=== PATIENT | male | born 1980 | race Caucasian/White ===

== ENCOUNTER 2025-03-13 10:37 | Emergency (ER) | payer SELFPAY ==
--- NOTE | ~2025-03-13 | XR_ITS ---
CLINICAL HISTORY: 2 weeks cough Two views of the chest. COMPARISON: None provided. FINDINGS: Hyperinflation. Normal heart size. Streaky consolidation along the left lung base. Blunting of the left costophrenic angle. No pneumothorax. No acute fracture. IMPRESSION: 1. Streaky left basilar consolidation suggestive of an infectious or inflammatory process. 2. Likely small left pleural effusion. This document has been electronically signed by: Fredo Ventura MD on 03/13/2025 14:03:57
[2025-03-13 10:59] VITALS: BP 157/82; PULSE 82; RESP 16; TEMP 36.2; O2SAT 99; BMI 21.8
--- NOTE | 2025-03-13 11:01 | ED.GENADULT ---
HPI - General Adult General Chief complaint: Back Pain/Injury Stated complaint: kidney pain swelling Time Seen by Provider: 03/13/25 12:00 Source: patient, RN notes reviewed and old records reviewed Mode of arrival: ambulatory Limitations: no limitations History of Present Illness ED Provider: SHANNON Alfonso HPI narrative: 44-year-old male without significant medical history presents to the ED due to lumbar back pain that has been radiating down bilateral legs. Patient states 2 weeks ago he had flu-like symptoms including productive cough, nasal congestion and malaise that has been improving after bed rest and home care, however cough has been persistent and he is unsure if this is due to his smoking history. Patient states he was in bed resting alot and began developing lumbar back pain that was radiating down B/L legs, but states this has also been improving. Patient reports a very physical lifestyle and has been doing kitchen renovations during this time period as well. Patient denies fall, trauma, injury causing this back pain. Additionally, patient states he saw a tick on his arm that was not attached that he was able to easily remove. During my time speaking with the patient, patient is bending forward touching his toes stating he is not having much pain today at all really. Denies saddle parasthesia, bowel/bladder incontinence, history of IV drug use. Denies chest pain, shortness of breath, fevers, chills MD complaint: lumbar back pain Related Data Previous Rx's ?Medication ?Instructions ?Recorded azithromycin 500 mg tablet See Rx Instructions PO .COMPLEX #9 03/13/25 tabs Allergies Allergy/AdvReac Type Severity Reaction Status Date / Time No Known Allergies Allergy Verified 03/13/25 11:02 Review of Systems Review of Systems: GENERAL APPEARANCE: ?AxOx4, generally well-appearing, no acute distress. HEENT: ?NC, AT. MMM. EOMI, clear conjunctiva, oropharynx clear. NECK: ?Supple without lymphadenopathy.? No stiffness or restricted ROM. HEART:? Normal rate and regular rhythm, normal S1/S1, no m/r/g LUNGS:? CTAB, moving air well. No crackles or wheezes are heard. ABDOMEN: ?Soft, nontender, nondistended with good bowel sounds heard. BACK: No CVAT, no obvious deformity. EXTREMITIES: ?Without cyanosis, clubbing or edema. NEUROLOGICAL: ?Grossly nonfocal. Alert and oriented, moving all 4 extremities. Observed to ambulate with normal gait. Skin: ?Warm and dry without any rash. Yes all other systems are reviewed and are negative [facility] Social History Social History Unable to assess alcohol history related to: Unknown Advance Directives: No Advance Directives Information Provided: No Physical Exam ED Vital Signs: Vital Signs - 24 hr 03/13/25 10:59 03/13/25 12:48 03/13/25 12:49 Temperature 97.2 F 98.6 F Pulse Rate 82 87 Respiratory Rate 16 19 Blood Pressure 157/82 H 148/96 H Pulse Oximetry 99 96 Oxygen Delivery Method Room Air Room Air BMI result Body Mass Index 21.8 GENERAL APPEARANCE: ?AxOx4, generally well-appearing, no acute distress. HEENT: ?NC, AT. MMM. EOMI, clear conjunctiva, oropharynx clear. NECK: ?Supple without lymphadenopathy.? No stiffness or restricted ROM. HEART:? Normal rate and regular rhythm, normal S1/S2, no m/r/g LUNGS:? CTAB, moving air well. No crackles or wheezes are heard. ABDOMEN: ?Soft, nontender, nondistended with good bowel sounds heard. BACK: No CVAT, no obvious deformity. No midline spinal tenderness, no lumbar paraspinal tenderness bilaterally, no SI joint tenderness bilaterally, ROM intact, patient able to comfortably bend forward and flexion, extend back and extension, B/L lateral bending intact without pain, no overlying skin changes or rashes noted. Patient is able to ambulate without pain, without ataxic gait EXTREMITIES: ?Without cyanosis, clubbing or edema. NEUROLOGICAL: ?Grossly nonfocal. Alert and oriented, moving all 4 extremities. Skin: ?Warm and dry without any rash. Course Course Course Narrative: This is a rapid medical exam performed by Joel Beard NP: Additional HPI, ROS, PE not included below will be deferred to primary provider. Patient is a 44y/o M presenting with complaint of back pain radiating to legs. Also has been having night sweats x 2 days. Plan: Labs, UA Medications Administered Discontinued Medications Generic Name Dose Route Start Last Admin Trade Name Freq PRN Reason Stop Dose Admin Acetaminophen 975 mg 03/13/25 12:59 03/13/25 13:04 Acetaminophen 325 Mg Tablet PO 03/13/25 13:00 975 mg ONCE ONE Administration Ketorolac Tromethamine 30 mg 03/13/25 12:59 03/13/25 13:04 Ketorolac Tromethamine 30 Mg/Ml Vial IM 03/13/25 13:00 30 mg ONCE ONE Administration Medical Decision Making Medical Decision Making [facility] Narrative: This is a very well appearing 44-year-old male who comes to the ED due to concerns of lumbar back pain that has been radiating down bilateral legs. Patient was ill with ?flu-like symptoms? approximately 2 weeks ago with productive cough, nasal congestion that has been progressively improving. Patient states during this time as he was in bed he developed some lumbar back pain, however this pain has been improving as well upon presentation. Physical exam without tenderness of midline spine or lumbar paraspinal muscles, no pain to palpation of bilateral SI joints, no skin rashes noted. ROM is fully intact patient able to perform extension, flexion, lateral bending without pain or restriction, patient able to ambulate freely without pain or ataxia. Patient denies saddle paresthesias, bowel/bladder incontinence. Patient reports he had a tick on him approximately 2 weeks ago that was not attached and he was able to easily remove. Patient without any red flag signs/symptoms including no history of IV drug use, no history of malignancy, no saddle paresthesias, bowel/bladder incontinence, no restriction of ROM, negative meningeal signs including negative Kernig's and Brudzinski's sign, patient afebrile, without fevers or chills at home, no signs of confusion or altered mental status Labs reveal leukocytosis of 19.3, H&H stable, no electrolyte abnormality, mild transaminitis with an AST of 59, ALT of 51. UA reveals concentrated urine with a gravity of 1.0, 2+ urine protein, 1+ leukocyte esterase, 11-20 urine WBCs, however negative for nitrites, with trace urine bacteria, patient without urinary symptoms no indication for antibiotics at this time. CXR reveals left basilar consolidation suggestive of infectious or inflammatory process, with a likely small left pleural effusion. Patient states cough is improving but is still present and productive. will prescribe 7 day course of azithromycin for coverage. Tick panel has been sent, will contact patient for treatment if positive. I counseled patient on these findings, patient without PCP I will provide referral. I counseled patient on strict return precautions. Patient feels well enough to go home for self-care, and is in agreement with the plan. Differential Diagnosis Differential Diagnoses: The differential diagnosis associated with the presentation includes Lumbar back strain Sciatica Pneumonia Bronchitis Admission/Observation Consideration of admission/observation: Escalation of care including admission/observation considered Lab Data MDM Lab Attestation statement: I reviewed the patient's lab results. 03/13/25 11:45 03/13/25 11:45 Labs: Lab Results 03/13/25 03/13/25 03/13/25 Range/Units 11:45 11:46 11:55 WBC 19.3 H (4.8-10.8) X10*3/uL RBC 4.51 L (4.60-5.80) X10*6/uL Hgb 14.9 (14.0-18.0) g/dl Hct 42.3 (42.0-52.0) % MCV 93.8 (80.0-98.0) fL MCH 33.0 (27.0-33.0) pg MCHC 35.2 (31.0-36.0) g/dl RDW 12.6 (11.0-16.0) % Plt Count 338 (160-400) X10*3/uL MPV 8.7 L (9.4-12.4) fL Immature Gran % (Auto) Cancelled Neut % (Auto) Cancelled Lymph % (Auto) Cancelled Morrow % (Auto) Cancelled Eos % (Auto) Cancelled Baso % (Auto) Cancelled Lymph # (Auto) Cancelled Morrow # (Auto) Cancelled Eos # (Auto) Cancelled Baso # (Auto) Cancelled Abs Immat Gran (auto) Cancelled Absolute Neuts (auto) Cancelled Absolute Nucleated RBC 0.000 (0.0-0.012) X10*3/uL Nucleated RBC % (auto) 0.0 (0.0-0.2) /100WBC Neutrophils % (Manual) 76 H (45-73) % Band Neutrophils % 1 L (3-5) % Lymphocytes % (Manual) 14 L (20-40) % Monocytes % (Manual) 9 (2-11) % Abs Neuts (Manual) 14.9 H (2.0-8.3) X10*3/uL Lymphocytes # (Manual) 2.7 (1.2-4.9) X10*3/uL Monocytes # (Manual) 1.7 H (0.1-1.2) X10*3/uL Platelet Estimate NORMAL (NORMAL) Plt Morphology Comment NORMAL RBC Morphology NORMAL Smear Tech's Comments MANUAL DIFF Sodium 140 (135-145) mmol/L Potassium 4.7 (3.3-5.1) mmol/L Chloride 106 (96-108) mmol/L Carbon Dioxide 24 (22-29) mmol/L Anion Gap 15 (12-20) BUN 13 (9-16) mg/dL Creatinine 0.95 (0.5-1.4) mg/dL Estim Creat Clear Calc 102.8 Estimated GFR > 60 Random Glucose 115 (60-115) mg/dL Calcium 10.0 (8.4-10.2) mg/dL Total Bilirubin 0.6 (0.0-1.0) mg/dL AST 59 H (5-37) U/L ALT 51 H (0-40) U/L Alkaline Phosphatase 87 (39-117) U/L Total Protein 7.8 (6.5-8.0) g/dL Albumin 4.5 (3.5-5.0) g/dL Urine Color Dark Yellow Urine Appearance Cloudy Urine pH 6.0 (5.0-9.0) Ur Specific Starr >= 1.030 H (1.005-1.025) Urine Protein 100 (2+) H (Neg-Trace) mg/dL Urine Glucose (UA) Negative (Negative) mg/dL Urine Ketones Trace (Negative) mg/dL Urine Blood Negative (Negative) Urine Nitrite Negative (Negative) Ur Leukocyte Esterase Small (1+) H (Negative) Urine RBC 0-2 (0-2) /HPF Urine WBC 11-20 (0-5) /HPF Ur Squamous Epith Cells 0-2 (0-2) /HPF Urine Bacteria Trace (None Seen) Hyaline Casts 0-2 (0-2) /LPF COVID-19 (JAMES) Negative (Negative) COVID-19 Clin Com See Note Influenza Type A (FANTA) Negative (Negative) Influenza Type B (FANTA) Negative (Negative) Influenza A & B Note See Note Independent Interpretation I performed an independent interpretation of an: Plain X-Ray Interpretation: I personally interpreted the CXR which reveals a small consolidation on the left side, I agree with the radiologist's interpretation Radiology Impression Discussion of test interpretation with radiology: I have reviewed the radiologist's reading. Radiologist Impression: CXR FINDINGS: Hyperinflation. Normal heart size. Streaky consolidation along the left lung base. Blunting of the left costophrenic angle. No pneumothorax. No acute fracture. IMPRESSION: 1. Streaky left basilar consolidation suggestive of an infectious or inflammatory process. 2. Likely small left pleural effusion. This document has been electronically signed by: Fredo Ventura MD on 03/13/2025 14:03:57 Dictated By: Fredo Ventura MD Signed By: <Electronically signed by Fredo Ventura MD in OV> 03/13/25 1405 External Record Review External record reviewed: Inpatient record, Office record and Outpatient record Chronic Conditions Patient?s care impacted by: Other (No known medical history) Discharge Plan Discharge Clinical Impression: Bronchitis, Strain of lumbar region Patient Disposition: Home, Self-Care Instructions: Acute Bronchitis (ED) Additional Instructions: You were evaluated in the ED today due to lumbar back pain. During your exam I noticed a cough. Your physical exam was reassuring as you had full mobility, no significant tenderness of the midline spine or muscles surrounding the spine. Your chest x-ray today revealed a small consolidation of the left lung space, with a very small amount of fluid called a pleural effusion. You are being prescribed a 7 day course of azithromycin for coverage of bronchitis. The fluid in the lung should resolve after the infection is treated. Additionally, you can treat back pain with 500 mg of Tylenol, 400 mg of ibuprofen every 6 hours, you can use heating pads or ice whatever you prefer to help manage his pain as well. You do not have a primary care doctor at this time, I have provided referrals for you, please call their office as they will not call you. Please return to the emergency department if you develop fevers over 100.4?, worsening back pain, tingling or loss of sensation of your inner thighs, bowel or bladder incontinence, worsening cough, chest pain, shortness of breath, or any new/worsening/concerning symptoms. Prescriptions: New azithromycin 500 mg tablet See Rx Instructions .ROUTE .COMPLEX Qty: 9 0RF Rx Instructions: For 250 mg dose pack: take 500 mg today (day 1), then 250 mg for 4 days (days 2-5) [place]errals: [facility] [place] [facility], [facility]] [facility] [Provider Group, [facility]] Lebron Rangel DO [Physician, Family Practice] Che Henry NP [Nurse Practitioner, Family Practice] [facility] [place] [Provider Group, Internal Medicine] Print Language: Welsh
[2025-03-13 11:54] LABS: Hematocrit 42.3 % (42.0-52.0); Hemoglobin 14.9 g/dl (14.0-18.0); Mean Corpuscular HGB Conc 35.2 g/dl (31.0-36.0); Mean Corpuscular Hemoglobin 33.0 pg (27.0-33.0); Mean Corpuscular Volume 93.8 fL (80.0-98.0); NRBC Abs Auto 0.000 X10*3/uL (0.0-0.012); NRBC Pct Auto 0.0 /100WBC (0.0-0.2); Platelet Count 338 X10*3/uL (160-400); Red Blood Count 4.51 X10*6/uL (4.60-5.80); White Blood Count 19.3 X10*3/uL (4.8-10.8)
[2025-03-13 12:06] LABS: Alanine Aminotransferase 51 U/L (0-40); Albumin Level 4.5 g/dL (3.5-5.0); Alkaline Phosphatase 87 U/L (39-117); Anion Gap 15 (12-20); Aspartate Amino Transferase 59 U/L (5-37); Blood Urea Nitrogen 13 mg/dL (9-16); Calcium 10.0 mg/dL (8.4-10.2); Carbon Dioxide 24 mmol/L (22-29); Chloride 106 mmol/L (96-108); Creatinine Clr Calc Pharmacy 102.8; Estimated Glomerular Filt Rate > 60; Potassium 4.7 mmol/L (3.3-5.1); Sodium 140 mmol/L (135-145); Total Protein 7.8 g/dL (6.5-8.0)
[2025-03-13 12:07] LABS: Appearance Urine Cloudy; Glucose Urine UA Negative (Negative); PH 6.0 (5.0-9.0); Specific Gravity - Urine >= 1.030 (1.005-1.025); UMIC TRIGGER UACC YES
[2025-03-13 12:10] LABS: COVID-19 Test Negative (Negative); IDNOW Serial# 55D5AD1C; IDNOW Serial# 58CA691E; Influenza B2 Negative (Negative)
[2025-03-13 12:18] LABS: UACC Culture Trigger YES
[2025-03-13 12:32] LABS: Band Neutrophils Percent 1 % (3-5); Lymphocytes Absolute Manual 2.7 X10*3/uL (1.2-4.9); Lymphocytes Percent Manual 14 % (20-40); Monocytes Absolute Manual 1.7 X10*3/uL (0.1-1.2); Monocytes Percent Manual 9 % (2-11); Neutrophils Absolute Manual 14.9 X10*3/uL (2.0-8.3); Neutrophils Percent Manual 76 % (45-73); RBC Morphology NORMAL
[2025-03-13 12:48] VITALS: BP 148/96; PULSE 87; RESP 19; O2SAT 96
[2025-03-13 12:49] VITALS: TEMP 37
[2025-03-13 14:58] VITALS: BP 148/96; PULSE 87; RESP 19; TEMP 37; O2SAT 96
[2025-03-16 00:58] LABS: A. Phagocytphilium DNA,RT-PCR NOT DETECTED (NOT DETECTED); Babesia Microti DNA, RT-PCR NOT DETECTED (NOT DETECTED); Borrelia Miyamotoi,DNA RT-PCR NOT DETECTED (NOT DETECTED); E.Chaffeensis DNA RT-PCR NOT DETECTED (NOT DETECTED); Lyme(Borrelia ssp)DNA RT-PCR NOT DETECTED (NOT DETECTED)
[2025-03-16 02:48] LABS: Lyme Abs Screen <0.90 index
== END 2025-03-13 15:00 | disposition home or self-care (01) ==
PROVIDERS: Registered Nurse Emergency; Emergency Provider Emergency Medicine Emergency Medical Services
DX: J40 Bronchitis, not specified as acute or chronic (principal); M54.50 Low back pain, unspecified; R05.9 Cough, unspecified; Z79.899 Other long term (current) drug therapy; Z11.52 Encounter for screening for COVID-19
CPT/HCPCS: 71046; 80053; 81001; 85007; 85025; 85027; 86617; 86618; 87086; 87468; 87469; 87478; 87484; 87502; 87635; 87798; 96372; 99284; J1885

== ENCOUNTER → 2025-03-13 12:59 | Outpatient (BNV) | payer SELFPAY | PROVIDERS: Emergency Provider Emergency Medicine Emergency Medical Services; Visit Provider Radiology Diagnostic Radiology | DX: R05.9 Cough, unspecified (principal) | CPT/HCPCS: 71046 ==